=== PATIENT | female | born 1965 | race Caucasian/White ===

== ENCOUNTER 2016-08-10 20:34 | Observation (INO) | payer OTHER ==
--- NOTE | ~2016-08-10 | EKG ---
PATIENT: BAL MCCLAIN UNIT #: [id number] Ventricular Rate: 67 BPM Atrial Rate: 67 BPM P-R Interval: 144 ms QRS Duration: 72 ms Q-T Interval: 426 ms QTC Calculation(Bezet): 450 ms P Apex: 66 degrees Calculated R Apex: 33 degrees Calculated T Apex: 80 degrees Diagnosis Line: Normal sinus rhythm Diagnosis Line: Normal ECG Diagnosis Line: When compared with ECG of 11-AUG-2016 07:42, Diagnosis Line: (unconfirmed) Diagnosis Line: No significant change was found Diagnosis Line: Confirmed by NGOZI ANDREWS MD ([id number]) on 08/12/2016 Diagnosis Line: 9:22:27 PM INTERPRETING MD: JULIANA ROMAN
--- NOTE | ~2016-08-10 | EKG ---
PATIENT: BAL MCCLAIN UNIT #: [id number] Ventricular Rate: 97 BPM Atrial Rate: 97 BPM P-R Interval: 144 ms QRS Duration: 78 ms Q-T Interval: 378 ms QTC Calculation(Bezet): 480 ms P Hutto: 60 degrees Calculated T Hutto: 43 degrees Diagnosis Line: Normal sinus rhythm Diagnosis Line: Low voltage QRS Diagnosis Line: Prolonged QT Diagnosis Line: Abnormal ECG Diagnosis Line: When compared with ECG of 20-AUG-2013 03:25, Diagnosis Line: QT has lengthened Diagnosis Line: Confirmed by NGOZI ANDREWS MD ([id number]) on 08/12/2016 Diagnosis Line: 8:34:15 PM INTERPRETING MD: JULIANA ROMAN
--- NOTE | ~2016-08-10 | CO ---
Unit #: [id number] #: [id number] Patient: BAL MCCLAIN [id number] [facility] [address]. [place], [place] [address] [id number] Esau MR#: [id number] NAME: BAL MCCLAIN ROOM: 555 Age: 51 Sex: F Admission Date: 08/10/2016 : 1965 Attending Physician: Lidia Allison M.D. CONSULTATION REPORT CHIEF COMPLAINT Chest pain and non ST-elevation myocardial infarction. HISTORY OF PRESENT ILLNESS The patient is a 51-year-old female, with a history of alcohol abuse, stopped in approximately 2013, chronic pancreatitis, reported upper GI bleed, GI ulcers, and esophagitis, who presents with chest pain and heroin use. She stated that she has been having chest pain over the past week or so. It comes on at rest or with moving around, and sometimes with walking. She says it feels like her heart was coming out of her chest. She stated that she just needed to take something for pain, therefore she took heroin yesterday. She states that she has been more tired more easily when she is walking and that her ankles have been swelling. There was one report from an ER nurse to our night-time nurse to myself that her mother called 911 and there have been chest compressions done. We have no strips which would suggest or verify this. Upon presentation to [facility], the patient's ECG was normal. Follow up ECG has been normal also. Urine drug screen was positive for benzodiazepines and opiates, obtained before opiates were administered in our facility. Initial point of care troponin was 0.05, normal, and increased within 2 hours to 0.18. Both of these were point of care troponins. I reviewed the ECG dated 08/11/2016, which I requested at 7:42 a.m. This showed normal sinus rhythm, normal ECG, normal intervals, no ST changes. I reviewed the ECG from 08/10/2016 at 20:39, which also showed low voltages and no acute ST changes. I reviewed the ECG from 08/10/2016 at 19:47, and it also was normal. Low anterior forces were noted, due to lead placement. The patient states that she is allergic to nitroglycerin. Of note, is that she stated to her admitting physician at [facility] on 01/01/2016, that she was allergic to Versed, she had benzodiazepines in her urine today. She also stated she was allergic to nonsteroidal anti-inflammatories, Toradol, and Zofran, but did not state that she was allergic to nitrates. She stated to our facility that she was allergic to nitrates and could only take morphine for her pain. She stated that the nitrates caused her throat to swell up. She stated to me that she has had 10 stents, starting at [facility], also at [facility], and [facility]. I Unit #: [id number] #: [id number] Patient: BAL MCCLAIN reviewed the catheterization from 09/13/2015 for unstable angina, which showed only two stents in place, one in the RCA and one in the LAD. LAD showed 50% in-stent restenoses, circumflex had 50% stenosis before the obtuse marginal, and RCA had a proximal stent which was patent. Distal 90% lesion, underwent PCI with a 2.5 x 24 mm drug-eluting stent. Fractional flow reserve was done of the LAD lesion and it did not meet threshold for revascularization. Psychiatry consult was recommended after the cath cardiac catheterization. PAST MEDICAL HISTORY 1. Coronary artery disease. Last cardiac catheterization that I can find at [facility] was 04/19/2016, which showed left main normal. LAD 50% in-stent restenosis, unchanged since 2016, 80% 2nd diagonal, jailed by the mid LAD stent. The circumflex has no significant disease. RCA, no significant disease; patent mid RCA stent. LVEDP was 7. 2. Pancreatitis, thought to be alcoholic by the notes. 3. Dyslipidemia, treated. 4. Hypertension, treated. 5. Esophagogastroduodenoscopy. 6. Hysterectomy. 7. Nephrectomy. 8. History of MRSA on a [facility] history. I have no confirmation of this. FAMILY HISTORY Positive for premature atherosclerotic events. She states that she had her first event when she was in her 40s, father has first event noticed in his 30s. SOCIAL HISTORY Continues to smoke. Took morphine yesterday by report. Stated that she did not take alcohol since 2013. REVIEW OF SYSTEMS Not sure about the reliability of this. MEDICATIONS Lammental (?) stated that this was an antidepressant; Plavix 75 mg daily; clonazepam 10 mg t.i.d.; Remeron 15 mg daily; Seroquel 25 mg daily; pravastatin 40 mg daily; lisinopril 10 mg daily; metoprolol 12.5 mg daily; gabapentin 800 mg t.i.d. PHYSICAL EXAMINATION GENERAL: Pleasant, complains of chest pain, but no acute distress. VITAL SIGNS: Heart rate is 77 and regular, blood pressure 127/88, height 5 feet 4 inches, weight 159 pounds. SKIN: Warm and dry. No xanthelasma. MUSCULOSKELETAL: No missing digits. Moves easily for evaluation. NEUROLOGICAL: Appropriate mood and affect. Alert and oriented x3. HEENT: Pupils equal, round and reactive. No oral cyanosis. No icterus. NECK: Carotids clear to auscultation with no carotid bruits. Normal carotid upstroke bilaterally. Thyroid is normal in size and texture without masses or tenderness. CHEST: Clear to auscultation with no rales or wheezes. Good effort. Exquisite tenderness, right parasternal. This was only on initial palpation. On repeat palpation, there was no tenderness she stated. CARDIAC: Normal point of maximum impulse. Normal S1 and S2. No S3, S4 or rub. ABDOMEN: No hepatosplenomegaly, masses or tenderness. Normal bowel Unit #: [id number] #: [id number] Patient: SARAHI,BAL sounds. No abdominal bruits heard. EXTREMITIES: No clubbing, cyanosis or edema. Excellent posterior tibial and dorsalis pedis pulses. DIAGNOSTIC STUDIES LABORATORY RESULTS: As above regarding ECG and troponins. Glucose is 158, creatinine 1.2, potassium 4.4, magnesium not obtained. Troponin 5.59. White blood count 10.3, hemoglobin 13.4, platelet count 245,000. IMPRESSION 1. Acute non ST-elevation myocardial infarction, type 2. ECG is normal. We have no verification of CPR. We have a history of GI bleed. She was discharged from [facility] on 08/08/2016 after four episodes of hematemesis she stated. Hemoglobin was 15.3 at that time at 3 o'clock in the morning on 08/08/2016. I did not find a Hemoccult on the results of the [facility] system. We will check a Hemoccult today. We are doing this to make sure that there was no active GI bleeding, especially with the recent admit. I think that because she does not have any acute ST-elevation, and because her cardiac catheterization between mid 2015 and 04/2016 did not change substantially, we are going to try to treat her medically. Appropriate medications were started. 2. Her last echocardiogram at [facility] showed ejection fraction of 55%, no significant valve disease. We will recheck an echo here. 3. Heroin use. I am not sure that this was an overdose. She stated that she "had to take something for her chest pain.". 4. History of pancreatitis. 5. History of esophagitis. 6. History of duodenal ulcer, with recent gastrointestinal workups at [facility]. 7. History of coronary artery disease. She stated to me that she had [address] She stated to her physicians at [facility] that she had 3 stents. 8. Continued tobacco abuse. 9. Hypertension. 10. Dyslipidemia. 11. Family history of coronary artery disease. RECOMMENDATIONS As noted above, I think we should take a conservative approach. Not sure about the total accuracy of the history, especially the new nitrate allergy. She has not stated in the past that she was allergic to nitrates, only that she was allergic to Versed, yet she has benzodiazepines in her system currently. Thus, I am not sure about the accuracy of her history. Again, we will continue to treat her conservatively and follow her troponins, and check an echo. 75 minutes spent in evaluation, assessment of prior history, discussion with the patient, discussion with multiple nurses. Dictated by... Vicente Rodriguez M.D. YOLA/hanna TD: 08/12/2016 01:46 JOB #: [id number] Unit #: [id number] #: [id number] Patient: BAL MCCLAIN CONSULTATION REPORT Page 1 of 1 X Vicente Rodriguez MD X CONSULTATION REPORT
--- NOTE | ~2016-08-10 | EKG ---
PATIENT: BAL MCCLAIN UNIT #: [id number] Ventricular Rate: 79 BPM Atrial Rate: 79 BPM P-R Interval: 138 ms QRS Duration: 72 ms Q-T Interval: 386 ms QTC Calculation(Bezet): 442 ms P Iron: 66 degrees Calculated R Iron: 47 degrees Calculated T Iron: 62 degrees Diagnosis Line: Normal sinus rhythm Diagnosis Line: Normal ECG Diagnosis Line: When compared with ECG of 10-AUG-2016 20:39, Diagnosis Line: (unconfirmed) Diagnosis Line: No significant change was found Diagnosis Line: Confirmed by NGOZI ANDREWS MD ([id number]) on 08/12/2016 Diagnosis Line: 8:38:20 PM INTERPRETING MD: JULIANA ROMAN
--- NOTE | ~2016-08-10 | EKG ---
PATIENT: BAL MCCLAIN UNIT #: [id number] Ventricular Rate: 67 BPM Atrial Rate: 67 BPM P-R Interval: 140 ms QRS Duration: 68 ms Q-T Interval: 422 ms QTC Calculation(Bezet): 445 ms P Squire: 81 degrees Calculated R Squire: 49 degrees Calculated T Squire: 80 degrees Diagnosis Line: Normal sinus rhythm Diagnosis Line: Normal ECG Diagnosis Line: When compared with ECG of 12-AUG-2016 17:27, Diagnosis Line: No significant change was found Diagnosis Line: Confirmed by GONSALO GEORGE MD ([id number]) on Diagnosis Line: 08/13/2016 11:27:33 PM INTERPRETING MD: MARCY
--- NOTE | ~2016-08-10 | DS ---
Unit #: [id number] #: [id number] Patient: BAL MCCLAIN [id number] [id number] [facility] [place] [facility]. [place], [place] [address] [id number] I MR#: [id number] NAME: BAL MCCLAIN ROOM: 555 Age: 51 Sex: F Admission Date: 08/10/2016 : 1965 Discharge Date: 08/13/2016 Attending Physician: Miguel Rajput M.D. Primary Care Physician: Primary Care Physician No DISCHARGE SUMMARY DATE OF DISCHARGE/SIGNING AGAINST MEDICAL ADVICE 08/13/2016 ADMITTING DIAGNOSIS Heroin overdose, patient found unresponsive and chest pains. CONSULTANTS Dr. Rodriguez PROCEDURES Cardiac catheterization, essentially normal. HISTORY OF PRESENT ILLNESS The patient is a 51-year-old lady with the past medical history significant for coronary artery disease, status post multiple stents, last stent a year and a half ago; history of heroin abuse, hypertension, hyperlipidemia, pancreatitis, abnormal LFTs. She was brought to the emergency room as she was found unresponsive at home, not breathing. Family started CPR. Patient was given Narcan and after that she regained her consciousness. She was complaining of chest pains. HOSPITAL COURSE In the hospital, she was kept on heroin withdrawal protocol. In the hospital, she did again overdose with the drugs and she was give Narcan and afterward she was better. She had cardiac catheterization. It was recommended by the resource manager forester to undergo medical management. Yesterday, we consulted psychiatry before that she was seen by psychiatry. She left against medical advice. Kindly note, she did not take any prescriptions. The nursing staff tried to explain to her that she needs to stay but still she left against medical advice. Dictated by... Miguel Rajput M.D. Unit #: [id number] #: [id number] Patient: BAL MCCLAIN PS/fazal TD: 08/14/2016 18:04 JOB #: [id number] DISCHARGE SUMMARY Page 1 of 1 X X DISCHARGE SUMMARY
--- NOTE | ~2016-08-10 | A ---
[facility] Nutrition Therapy DATE: 08/11/16 Patient: BAL MCCLAIN Physician: MORCAR Address: [address] Room/Bed: [address] [place] [address], Zip: [place] [address] Admit Date: 08/10/16 Date of : [birth year] Height: 5 4 Weight: 159 72.2 NUTRITIONAL ASSESSMENT: REASON: 4 NUTRITION RISK PT RE: WEIGHT LOSS + PRESSUR ULCER + POOR PO INTAKE, ALSO CONSULT PT IS 51 Y.O. FEMALE ADMITTED FOR CHEST PAIN & HEROIN OVERDOSE PMH: CAD, HTN, DYSLIPIDEMIA, HEROIN ABUSE, PANCREATITIS, ANEMIA, ANXIETY, DEPRESSION, (L) NEPHRECTOMY Anthropometrics: 5'4", WT: 160# (73 KG), BMI: 27.5 Labs: GLU: 158, GFR: 52.7, NA+:134 Meds: REMERON, PROTONIX, NACL I/O & Bowel function: NO UPDATED I/Os AT THIS TIME Skin Integrity: NO KNOWN SKIN ISSUES Assessment: CHART REVIEWED AND EVENTS NOTED. PT SEEN FOR WEIGHT LOSS + PRESSURE ULCER + POOR PO INTAKE + CONSULT RECEIVIED. PT REPORTS FAIR PO INTAKE 2' DECREASED APPETITE PAST FEW DAYS D/T "NOT FEELING WELL". PT REPORTS CONSUMING TOAST, CEREAL AND BITES OF OATMEAL THIS AM FOR BREAKFAST. PT REPORTS LOSING ~20# IN PAST 4-5 MONTHS BUT NOTES UBW IS ~160# (CURRENT WEIGHT ABOVE). ALSO PER Practice Management e-Tools, PT'S WEIGHTS HAVE BEEN STABLE. THIS RD ENCOURAGED ADEQUATE KCAL AND PROTEIN INTAKE, PT AGREED TO ENSURE COMPACT BID W/MEALS, RD TO ORDER. PT ALSO REQUESTED PANCREATITIS DIET EDUCATION. RD PROVIDED WRITTEN AND VERBAL. PT DEMONSTRATED UNDERSTANDING OF THE TOPIC AND REPORTED NO DIET QUESTIONS. RD TO REMAIN AVAILABLE AND FOLLOW. Dx: DECREASED NUTRIENT INTAKE R/T DECREASED APPETITE, CURRENT CONDITION AEB PT REPORT ABOVE, ?WEIGHT LOSS NOTED. Intervention: 1. HH DIET 2. RD CONSULT 3. ENSURE COMPACT BID W/MEALS 4. LOW FAT DIET EDUCATION Monitoring, Evaluation and Goals: 1. ORAL INTAKE; CONSUME >50% OF MEALS AND SUPPLEMENTS W/NO C/O N/V/D 2. WEIGHTS; PREVENT ANY FURTHER WEIGHT LOSS? 3. LABS; WNL MONITOR: [facility] Nutrition Therapy DATE: 08/11/16 Patient: BAL MCCLAIN Physician: OLU Address: [address] Room/Bed: [address] [place] [address], Zip: [place] [address] Admit Date: 08/10/16 Date of : [birth year] Height: 5 4 Weight: 159 72.2 -PO INTAKE/APPETITE -WEIGHTS -SUPPLEMENT INTAKE -EDUCATION NEEDS Recommendations: 1. PLEASE ORDER TEAGAN ENSURE COMPACT BID W/MEALS 2. ENCOURAGE PO AND SUPPLEMENT INTAKE 3. RE-CONSULT RD IF FURTHER DIET EDUCATION REQUESTED RD WILL F/U PER PROTOCOL PT IS MILDLY COMPROMISED Respectfully, ANKUR DANIELS MS, RD, LD [employer] [facility] [employer] cc: client file
--- NOTE | ~2016-08-10 | HP ---
Unit #: [id number] #: [id number] Patient: BAL MCCLAIN [id number] [address] [place], [place] [address] [id number] I MR#: [id number] NAME: BAL MCCLAIN ROOM: 555 Age: 51 Sex: F Admission Date: 08/10/2016 : 1965 Attending Physician: Lidia Allison M.D. Primary Care Physician: No Primary Care Physician HISTORY AND PHYSICAL CHIEF COMPLAINT Chest pain, heroin overdose. DISCUSSION This is a 51-year-old female who has a past medical history of coronary artery disease, status post multiple stents, last stent 1 1/2 years ago at [facility]; history of heroin abuse; hypertension; dyslipidemia; history of pancreatitis in the past; abnormal LFT; anxiety/depression; history of microcytic anemia in the past; history of chronic back pain. She was found at home unresponsive, not breathing. Family started CPR. EMS was called. On arrival of EMS, Narcan was given and she regained consciousness. Brought to the emergency room. Here, she is alert and oriented x3 at this time. She is complaining of chest pain that she describes central across the chest, sharp, radiates to left arm. Left arm, she says, has been numb. She denies fever, chills, cough, nausea, vomiting, or other complaint. PAST MEDICAL HISTORY 1. History of hypertension. 2. Dyslipidemia. 3. Coronary artery disease, status post multiple stents. Last stent 1 1/2 years ago as per her at [facility]. 4. History of pancreatitis. 5. History of abnormal LFT in the past. 6. Anxiety/depression. 7. Chronic back pain. PAST SURGICAL HISTORY 1. History of total abdominal hysterectomy. 2. Left nephrectomy for recurrent infection. 3. Previous stenting, cardiac cath, and multiple stents. SOCIAL HISTORY She says she drinks alcohol, but she has not drank for two years. She says she smokes 1/2 pack daily. She uses heroin. FAMILY HISTORY History of heart disease and hypertension in the family. ALLERGIES She said she is allergic to NSAIDs and Zofran. HOME MEDICATIONS She currently is not taking any medications. She is supposed to be on: Unit #: [id number] #: [id number] Patient: BAL MCCLAIN 1. Plavix. 2. Gabapentin. 3. Ativan. 4. Pravastatin. Currently not taking any medication. TWELVE REVIEW OF SYSTEMS Negative, except history of present illness. PHYSICAL EXAMINATION GENERAL APPEARANCE: Middle-aged female lying in the bed comfortably. Currently not in any distress. She is alert, awake, and oriented x3. Comfortable. VITAL SIGNS: Current vitals are following: Temperature 97.6, heart rate 98, respiratory rate 16, blood pressure 154/97, and oxygen 96 on room air. HEENT: Pupils equal and reactive to light and accommodation. Head normocephalic and atraumatic. NECK: Supple. No JVD. HEART: S1 and S2. Regular rate and rhythm. LUNGS: Clear to auscultation bilaterally. No rhonchi. No wheezing. ABDOMEN: Soft, nontender, and nondistended. Bowel sounds positive. EXTREMITIES: Inspection normal. No cyanosis, no clubbing, and no edema. NEURO: No focal neurologic deficit. DIAGNOSTIC STUDIES LABORATORY: Workup is following. Sodium 134, potassium 4.1, glucose 158, BUN 20, creatinine 1.2, and LFT within normal limits. CK total 348. Alcohol less than 5. BNP is 35. INR is 1. Troponin less than 0.05. White count 10, hemoglobin 13, hematocrit 39, and platelets 245. IMAGING: Chest x-ray shows questionable pulmonary edema. ASSESSMENT AND PLAN 1. Heroin overdose, status post Narcan. 2. Chest pain with a history of coronary artery disease with multiple stents in the past. Noncompliant with medications. Will admit the patient to rule out acute coronary syndrome. Start on aspirin and Plavix. Ask cardiology to evaluate. 3. History of hypertension. Start on metoprolol. 4. Dyslipidemia. Recheck lipid profile in the morning. Start on pravastatin 40 mg daily. 5. Remote history of pancreatitis. 6. History of abnormal LFT in the past. Currently, LFT within normal limits. 7. History of chronic back pain. 8. Anxiety and depression. 9. DVT prophylaxis. Will place the patient on SCDs. Dictated by Majo Radford/aline TD: 08/11/2016 06:08 JOB #: [id number] Unit #: [id number] #: [id number] Patient: BAL MCCLAIN HISTORY AND PHYSICAL Page 1 of 1 X X HISTORY AND PHYSICAL
--- NOTE | ~2016-08-10 | CR72 ---
[facility] A Service of [facility] RADIOLOGY TEXT RESULTS PATIENT: BAL MCCLAIN LOCATION: C5B 555-01 : 67 UNIT #: [id number] AGE: [address]: Lidia Allison MD SEX: F ORDER DR: [id number] [facility] [address] [place], [place] [address] [id number] I MR#: [id number] Acc #: [id number] NAME: BAL MCCLAIN : 1965 SEX: F STUDY DATE/TIME: 08/10/2016 21:29 UNIT: [facility] ROOM: [facility] STUDY DESCRIPTION: CR Chest Single View Portable Attending Physician: Lidia Allison M.D. Ordering Physician: Paola Bonilla M.D. Primary Care Physician: No Primary Care Physician MEDICAL IMAGING REPORT This report is preliminary unless electronic signature is present EXAM Portable chest, 08/10/2016. HISTORY Chest pain. Generalized weakness. Overdose today. Benign essential hypertension. FINDINGS The cardiac and mediastinal structures are stable compared with 08/04/2015. There are interstitial infiltrates bilaterally suggesting mild pulmonary edema. There are atelectatic changes at the left base. There are no pleural effusions. IMPRESSION Mild pulmonary edema. Dictated by... Parvez Watson M.D. THIS IS AN ELECTRONICALLY VERIFIED REPORT Parvez Watson M.D. at 08/11/2016 3:07 PM KRT/aline TD: 08/11/2016 10:26 JOB #: [id number] MEDICAL IMAGING REPORT Page 1 of 1 COPY
[~2016-08-10 20:34] MED LIST: AMBIEN10 MG PO; ASPIRIN81 M1 PO; BACLOFEN10 MG PO; CATAPRES-TTS-10.1 MG PO; EFFIENT10 MG PO; FAMOTIDINE; FLEXERIL PO; LEVAQUIN; LIBRIUM25 MG PO; LISINOPRIL10 MG PO; LORTAB 101 TAB 10/5 PO; LORTAB 5/500 TA1 TA1 PO; MACROBID 100 M100 MG PO; MACROBID100 M1 PO; MACROBID100 MG PO; MEDROL PO; NITROSTAT0.4 MG SL; NO MEDICATIONS; PEN-VEE K; PENICILLIN PO; PERCOCET 5-3251 TAB PO; PLAVIX PO; PRAVASTATIN SOD40 MG PO; PREDNISONE; PREDNISONE PO; PREVACID15 MG PO; PROTONIX PO; RESTORIL15 MG PO; SIMVASTATIN40 MG PO; SIMVASTATIN5 MG PO; SKELAXIN PO; SUSTIVA PO; TEMAZEPAM PO; TRAMADOL HCL50 M1 PO; TRAZODONE; TYLENOL325 M1 PO; ULTRAM; ULTRAM PO; VICODIN 5/1 TAB 5/50 PO; VISTARIL; VITAMIN B-121000 MCG PO; XANAX1 MG PO; ZITHROMAX PO; ZOCOR20 MG PO; ZOCOR80 MG PO; ZOLOFT100 MG PO; [UNRECOGNIZED DRUG - OTHER] PO
[2016-08-10 21:27] LABS: BASOPHIL# 0.1 X10e3 (0-0.3); BASOPHIL% 0.8 % (0-2.5); EOSINOPHIL# 0.2 X10e3 (0-0.7); EOSINOPHIL% 1.5 % (0.0-7.0); HEMATOCRIT 39.3 % (35.0-45.0); HEMOGLOBIN 13.4 gm/dL (12.0-16.0); LYMPHOCYTE# 1.9 X10e3 (1.0-3.5); MEAN CELL VOLUME 94.3 FL (83-96); MEAN CORPUSCULAR HEMOGLOBIN 32.2 PG (28-34); MEAN CORPUSCULAR HGB CONC 34.1 g/dL (30-36); MONOCYTE# 0.8 X10e3 (0-1.0); MONOCYTE% 8.1 % (3.0-12.0); NEUTROPHIL# 7.4 X10e3 (1.5-7.1); NEUTROPHIL% 71.6 % (40-75); PLATELET COUNT 245 X10e3 (140-420); RED BLOOD COUNT 4.17 X10e (3.90-5.30); RED CELL DISTRIBUTION WIDTH 14.6 % (11.0-15.5); WHITE BLOOD COUNT 10.3 X10e3 (4.0-10.5)
[2016-08-10 21:28] LABS: DIFF IND NO
[2016-08-10 21:36] LABS: POC - TROPONIN <0.05 ng/mL (<=0.05)
[2016-08-10 21:42] LABS: PARTIAL THROMBOPLASTIN TIME 24.9 SECONDS (23.5-31.3)
[2016-08-10 22:08] LABS: ALBUMIN SERUM 4.4 g/dL (3.5-5.0); ALKALINE PHOSPHATASE 84 U/L (32-92); ALT (SGPT) 26 U/L (10-40); AST (SGOT) 30 U/L (10-42); BILIRUBIN,TOTAL 0.2 mg/dL (0.2-2.0); BLOOD UREA NITROGEN 20 mg/dL (9-23); BUN/CREATININE RATIO 16.66; CALCIUM SERUM 9.2 mg/dL (8.4-10.2); CARBON DIOXIDE 23 mmol/L (22-31); CHLORIDE 101 mmol/L (100-111); CPK (CREATINE PHOSPHOKINASE) 348 IU/L (26-140); CREATININE SERUM 1.2 mg/dL (0.6-1.4); GLOM FILT RATE Estimated 52.7 mL/min (>60); GLUCOSE FASTING 158 mg/dL (70-110); POTASSIUM 4.4 mmol/L (3.5-5.1); PROTEIN TOTAL SERUM 7.6 g/dL (6.0-8.3); SODIUM 134 mmol/L (135-145)
[2016-08-10 22:09] LABS: ALCOHOL BLOOD <5 mg/dL (0); BILIRUBIN, DIRECT 0.1 mg/dL (0.0-0.2); BILIRUBIN,INDIRECT 0.1 mg/dL (0.0-0.9)
[2016-08-10 23:49] LABS: POC - CKMB 4.2 ng/mL (0.0-7.9); POC - TROPONIN 0.18 ng/mL (<=0.05)
[2016-08-11 01:08] LABS: AMPHETAMINE NEG (NEG); BARBITURATES NEG (NEG); BENZODIAZEPINES POS (NEG); COCAINE NEG (NEG); MARIJUANA NEG (NEG); OPIATES POS (NEG); TRICYCLIC ANTIDEPRESSANTS NEG (NEG); U METHADONE NEG (NEG)
[2016-08-11] MEDS ORDERED: [UNRECOGNIZED DRUG - OTHER] PO (02:00)
[2016-08-11] MEDS ORDERED: CLOPIDOGREL75 MG PO (02:01)
[2016-08-11] MEDS ORDERED: CLONAZEPAM2 MG PO (02:03)
[2016-08-11] MEDS ORDERED: REMERON15 MG SL (02:05)
[2016-08-11] MEDS ORDERED: SEROQUEL25 MG PO (02:05)
[2016-08-11] MEDS ORDERED: PRAVASTATIN SOD40 MG PO (02:06)
[2016-08-11] MEDS ORDERED: METOPROLOL SUCC25 MG PO (02:07)
[2016-08-11] MEDS ORDERED: LISINOPRIL10 MG PO (02:07)
[2016-08-11] MEDS ORDERED: GABAPENTIN800 MG PO (03:21)
[2016-08-11 06:29] LABS: CHOLESTEROL 199 mg/dL (0-200); HDL CHOLESTEROL 40 mg/dL (35-95); LDL/HDL RATIO 3 RATIO (0-4); TRIGLYCERIDES 103 mg/dL (10-160)
[2016-08-11 06:36] LABS: LDL CHOLESTEROL 138 mg/dL (-130)
[2016-08-11 07:24] LABS: %MB 6.9 % (0.0-4.0); MB 27.8 ng/ml
[2016-08-11 14:39] LABS: %MB 7.3 % (0.0-4.0); MB 30.2 ng/ml
[2016-08-11 18:59] LABS: %MB 6.5 % (0.0-4.0); MB 22.3 ng/ml
[2016-08-12 07:00] LABS: HEMATOCRIT 37.2 % (35.0-45.0); HEMOGLOBIN 12.6 gm/dL (12.0-16.0); MEAN CELL VOLUME 94.4 FL (83-96); MEAN CORPUSCULAR HGB CONC 33.9 g/dL (30-36); MEAN PLATELET VOLUME 7.5 FL (6.5-11.5); RED BLOOD COUNT 3.94 X10e (3.90-5.30); RED CELL DISTRIBUTION WIDTH 14.8 % (11.0-15.5); WHITE BLOOD COUNT 6.7 X10e3 (4.0-10.5)
[2016-08-12 07:29] LABS: GLOM FILT RATE Estimated 65.7 mL/min (>60); MAGNESIUM 1.9 mg/dL (1.6-3.0); POTASSIUM 4.7 mmol/L (3.5-5.1)
[2016-08-13 06:18] LABS: CALCIUM SERUM 8.7 mg/dL (8.4-10.2); GLOM FILT RATE Estimated 65.7 mL/min (>60); POTASSIUM 4.2 mmol/L (3.5-5.1)
[2016-08-13 06:35] LABS: %MB 2.6 % (0.0-4.0)
== END 2016-08-13 19:40 | disposition left against medical advice (07) ==
LOC: CED 20:34 → CEDOF 23:40 → C5B 08-11 01:27
PROVIDERS: Emergency Medicine; Family Medicine; Internal Medicine; Internal Medicine Cardiovascular Disease
DX: T40.1X1A Poisoning by heroin, accidental (unintentional), initial encounter (principal); I21.4 Non-ST elevation (NSTEMI) myocardial infarction; I25.10 Atherosclerotic heart disease of native coronary artery without angina pectoris; Z95.5 Presence of coronary angioplasty implant and graft; I10 Essential (primary) hypertension; E78.5 Hyperlipidemia, unspecified; F41.8 Other specified anxiety disorders; Z87.19 Personal history of other diseases of the digestive system; F17.200 Nicotine dependence, unspecified, uncomplicated; Z82.49 Family history of ischemic heart disease and other diseases of the circulatory system; Z90.710 Acquired absence of both cervix and uterus; I07.1 Rheumatic tricuspid insufficiency; Z88.6 Allergy status to analgesic agent; Z88.8 Allergy status to other drugs, medicaments and biological substances; Z90.5 Acquired absence of kidney
CPT/HCPCS: 36415; 71010; 80048; 80061; 80076; 80307; 82550; 82553; 83036; 83735; 83880; 84443; 84484; 85025; 85027; 85610; 85730; 93005; 93306; 94760; 94762; 96372; 96374; 96375; 96376; 99285; C1760; C1769; C1894; C9113; G0378; G0480; J1170; J1327; J1644; J1650; J2060; J2250; J2270; J2310; J3010